=== PATIENT | female | born 1960 | race Caucasian/White ===

== ENCOUNTER → 2017-09-13 | Outpatient (CLI) | payer OTHER | LOC: MC.RAD 08:57 | DX: Z12.31 Encounter for screening mammogram for malignant neoplasm of breast (principal) ==

== ENCOUNTER → 2020-10-27 | Outpatient (CLI) | payer OTHER | LOC: COL.VAS 07:27 | DX: M79.89 Other specified soft tissue disorders (principal) ==

== ENCOUNTER → 2022-02-01 | Outpatient (CLI) | payer OTHER | LOC: COL.RAD 07:31 | DX: M79.671 Pain in right foot (principal); M79.672 Pain in left foot | CPT/HCPCS: J3301; Q9967 ==